=== PATIENT | male | born 1990 | race Caucasian/White ===

== ENCOUNTER 2017-03-08 18:26 | Emergency (ER) | payer BC ==
[2017-03-08 18:40] VITALS: RESP 16; TEMP 98.5
[2017-03-08 18:47] VITALS: BP 131/74; PULSE 78
--- NOTE | 2017-03-08 18:56 | ED ---
Wound/Laceration HPI - General Chief Complaint: Wound/Laceration Stated Complaint: Dog bite Time Seen by Provider: 03/08/17 18:48 Source: patient, RN notes reviewed, old records reviewed Mode of arrival: ambulatory Limitations: no limitations - History of Present Illness Initial Comments: Patient is a 26-year-old male chief complaint of a laceration over his lower lip. Patient reports that his dog was excited and jumped up. He reports that he his dog's tooth injured his outer lower lip. He reports that he did puncture his inner lower lip with his own teeth. Patient states he does not know the status of his tetanus vaccination. He is ALLERGIC to penicillin medication. She denies any other injuries after the dog jumped up on him. Reports of the dog is up-to-date on vaccinations. Patient denies any recent fever, chills, shortness of breath, chest pain, back pain, abdominal pain, nausea vomiting, numbness or tingling, dysuria or hematuria, constipation or diarrhea, headaches or visual changes, or any other current symptoms - Related Data Previous Rx's Medication Instructions Recorded Doxycycline [Vibramycin] 100 mg PO Q12HR #14 capsule 03/08/17 metroNIDAZOLE [Flagyl] 500 mg PO TID #21 tab 03/08/17 Allergies Allergy/AdvReac Type Severity Reaction Status Date / Time No Known Allergies Allergy Verified 03/08/17 18:39 Review of Systems ROS Statement: Those systems with pertinent positive or pertinent negative responses have been documented in the HPI. ROS Other: All systems not noted in ROS Statement are negative. Past Medical History Past Medical History: No Reported History History of Any Multi-Drug Resistant Organisms: None Reported Past Surgical History: No Surgical Hx Reported Past Psychological History: No Psychological Hx Reported Smoking Status: Never smoker Past Alcohol Use History: None Reported Past Drug Use History: None Reported General Exam - General Exam Comments Initial Comments: Patient is a pleasant 26-year-old male. No distress. Limitations: no limitations General appearance: alert, in no apparent distress Head exam: Present: atraumatic Eye exam: Present: normal appearance, PERRL, EOMI. Absent: scleral icterus, conjunctival injection, periorbital swelling ENT exam: Present: normal exam, mucous membranes moist, other (One semi-a laceration over the lower lip. Laceration does extend into the vermilion border. 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 Absent: tenderness, meningismus, lymphadenopathy Respiratory exam: Present: normal lung sounds bilaterally. Absent: respiratory distress, wheezes, rales, rhonchi, stridor Cardiovascular Exam: Present: regular rate, normal rhythm, normal heart sounds. Absent: systolic murmur, diastolic murmur, rubs, gallop, clicks GI/Abdominal exam: Present: soft, normal bowel sounds. Absent: distended, tenderness, guarding, rebound, rigid Extremities exam: Present: normal inspection, full ROM, normal capillary refill. Absent: tenderness, pedal edema, joint swelling, calf tenderness Back exam: Present: normal inspection Neurological exam: Present: alert, oriented X3, CN II-XII intact Psychiatric exam: Present: normal affect, normal mood Skin exam: Present: warm, dry, intact, normal color. Absent: rash Course Vital Signs 03/08/17 03/08/17 18:36 18:41 Temperature 98.5 F 98.5 F Pulse Rate 78 Respiratory 16 16 Rate Blood Pressure 131/74 O2 Sat by Pulse 100 Oximetry Procedures - Laceration Laceration #1 Indication: laceration Site: lip (lower right side lip) Size (cm): 1 Description: linear Depth: simple, single layer Anesthetic Used: benzocaine 0.25% Anesthesia Technique: local infiltration Amount (mls): 2 Pre-repair: wound explored, irrigated extensively Type of Sutures: vicryl Size of Sutures: 6-0 Number of Sutures: 3 Technique: simple, interrupted (buried) Patient Tolerated Procedure: well, no complications Medical Decision Making - Medical Decision Making Patient is a 26 YEAR old male with dog bite laceration on lower right side of lip. Laceration was cleaned extesively and closed with 3 subcutaneous absorbable suture. Laceration was well approximated and gopi border in line. Patient reports he actually is up to date on his tetanus when his son was born 1 year ago. Patient placed on Flagyl and doxycycline as he is allergic to augmenton. Patient agrees with treatment plan and will comply, return parameters discussed. Disposition Clinical Impression: Dog bite, Lip laceration Disposition: HOME SELF-CARE Condition: Good Instructions: Care For Your Absorbable Stitches (ED), Animal Bite (ED) Additional Instructions: Patient advised to completely anabiotic prescriptions. Allow the sutures to dissolve. Follow-up with primary care provider if any signs of infection do occur after taking the antibiotics. Return to emergency department if any alarming signs or symptoms occur. Prescriptions: Doxycycline [Vibramycin] 100 mg PO Q12HR #14 capsule metroNIDAZOLE [Flagyl] 500 mg PO TID #21 tab Referrals: Sierra Edouard MD [STAFF PHYSICIAN] - 1-2 days Time of Disposition: 18:57
[2017-03-08] MEDS: DIPH,PERTUS(ACELL)TETVAC-LF 0.5 ML VIAL IM ONE ×2 (19:05→19:10)
== END 2017-03-08 19:37 | disposition home or self-care (01) ==
LOC: EC 18:26
DX: S01.551A Open bite of lip, initial encounter (principal); W54.0XXA Bitten by dog, initial encounter; Z88.0 Allergy status to penicillin
CPT/HCPCS: 12011; 90715; 99282